=== PATIENT | male | born 1995 | race Hispanic/Latino ===

== ENCOUNTER 2016-06-08 12:40 | Inpatient (IN) | payer OTHER ==
[2016-06-08] VITALS (8 sets, daily range): BP systolic 91–116; BP diastolic 44–80; PULSE 83–97; RESP 16–32; O2SAT 98–100
[~2016-06-08] VITALS: Ht 157.5 cm; Wt 63.3 kg
[~2016-06-08 12:40] MED LIST: CEPH500C PO; DIGO250T72 PO; FUR20 PO; HYDR-4003 PO; LISI10TA PO; METO25TA99 PO; SPIR25TA3 PO; WARF5TAB7 PO
--- NOTE | 2016-06-08 13:36 | DRSVH ---
PROCEDURE: X-RAY CHEST ONE VIEW, PORTABLE ([id number]) INDICATIONS: shortness of breath TECHNIQUE: One view of the chest was acquired. COMPARISON: [facility], CR, XR CHEST 2VW, 12/31/2015, 6:54. [facility], CR, XR CHEST 1VW (PORTABLE), 12/30/2015, 10:54. FINDINGS: Surgical changes and devices: Stable position left chest AICD. Lungs and pleura: No pleural effusions or pneumothorax. Lungs are clear. Mediastinum: Mediastinal contours appear normal. Heart size is enlarged. Bones and chest wall: No suspicious bony lesions. Overlying soft tissues appear unremarkable. IMPRESSION: Cardiomegaly redemonstrated otherwise no definite acute cardiopulmonary process. Dictated by: Rigoberto Majano [facility] Interpreted: Suzette Prado MD on 06/08/2016 at 13:34 Transcribed by: HERACLIO on 06/08/2016 at 13:35 Approved by: Suzette Prado MD, PhD on 06/08/2016 at 16:14
[2016-06-08 14:08] LABS: BASOPHILS % (AUTO) 0.4 % (0-3); MONOCYTES % (AUTO) 8.8 % (4-12); Mean Corpuscular Volume 71.4 fL (81-100)
--- NOTE | 2016-06-08 14:09 | ED.REPORT ---
HPI-General Illness Date of Service Jun 08, 2016 ED Provider: Minerva Martini MD Pt is a 20 y/o male anticoagulated on Warfarin and medicated on Digoxin w/ a hx of crystal meth-induced dilated cardiomyopathy, CHF (EF of 10-15% 11/12/15), s/p AICD placement, presenting to the ED c/o worsening dyspnea on mild exertion onset 05/20/16. He c/o associated increased pedal edema, lightheadedness, dizziness, red productive cough, nausea. Pt denies CP, fever, chills, abdominal pain, vomiting, diarrhea. He states most of his health problems are the cause of smoking crystal meth in the past. He denies any missed medications. Pt denies any recent drug or alcohol use. Cardiology: Dr. Leon Nursing Notes Stated Complaint: WEAK Chief Complaint: General Complaint Nursing Notes Reviewed: Yes Allergies: Coded Allergies: No Known Allergies (Verified Allergy, Unknown, 10/10/15) Scheduled Digoxin (Digoxin) 250 Mcg Tablet 250 MCG PO DAILY Furosemide (Furosemide) 20 Mg Tab 20 MG PO DAILY Lisinopril (Lisinopril) 10 Mg Tablet 10 MG PO BID Metoprolol Succinate ER (Metoprolol Succinate ER) 25 Mg Tab.er.24h 12.5 MG PO DAILY Spironolactone (Spironolactone) 25 Mg Tablet 25 MG PO DAILY Warfarin Sodium (Warfarin Sodium) 5 Mg Tablet 7.5 MG PO WEEKLY monday Warfarin Sodium (Warfarin Sodium) 5 Mg Tablet 5 MG PO 6X weekly every day but monday General Time Seen by MD: 13:46 Chief Complaint Other (SOB) Hx Obtained From: Patient Arrived By: Walk-in Sudden in Onset?: No Onset Occurred: More than a week ago... (1 month) Symptom Duration: Since onset Severity: Current: No pain currently Severity: Maximum: No pain Recent Healthcare: Recent testing, Previous diagnosis, Prior workup Similar Sx Previous: Yes Past Medical History Past Medical History Notes: Cardiology: Dr. 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 Physical Exam Vital Signs Vital Signs Date Time Temp Pulse Resp B/P Pulse Ox O2 Delivery O2 Flow Rate FiO2 06/08/16 13:03 36.0 88 20 101/70 99 Room Air Initial VS: Reviewed, Vital signs normal Head / Eyes: Atraumatic, Normocephalic, PERRL ENT: Mucous membranes moist, Conjunctiva normal, No scleral icterus Neck: Supple, Full range of motion Abdomen / GI: Soft, Non-tender Extremities: Vascular intact, Neuro intact, No swelling, No tenderness Skin: Warm, Dry, No cyanosis Neurologic: Alert, Oriented, Nonfocal Psychiatric: Mood/affect normal, Behavior normal, Normal thought content General/Constitutional: Awake, Alert, No acute distress, Cooperative, Not toxic appearing Respiratory / Chest: Atraumatic, No respiratory distress, No retractions, No stridor, No chest tenderness, No chest wall deformity, No crepitus Minor rhonchi on right side that clears with deep breathing. Cardiovascular: Heart rate NL, Regular rhythm, Cap refill not delayed, Peripheral circulation NL Heart Sounds / Murmur: Positive: Diastolic murmur present. (II/, heard best at apex) Interpretation & Diagnostics Lab Results Interpretation Result Diagram: 06/08/16 1250 06/08/16 1250 Test 06/08/16 12:50 White Blood Count 7.0th/mm3 (3.8-10.1) Red Blood Count 5.74mil/mm3 (4.40-5.80) Hemoglobin 12.5g/dL (13.8-17.2) Hematocrit 41.0% (41.0-50.0) Mean Corpuscular Volume 71.4fL (81-100) Mean Corpuscular Hemoglobin 21.8pg (27.0-35.0) Mean Corpuscular Hemoglobin Concent 30.5% (32.0-37.0) Red Cell Distribution Width 19.0% (12.3-15.4) Platelet Count 225bil/L (150-400) Neutrophils (%) (Auto) 55.5% (40-74) Lymphocytes (%) (Auto) 33.8% (14-46) Monocytes (%) (Auto) 8.8% (4-12) Eosinophils (%) (Auto) 0.9% (0-5) Basophils (%) (Auto) 0.4% (0-3) Prothrombin Time 87.2sec (8.1-12.5) Prothromb Time International Ratio 7.81ratio Sodium Level 128mEq/L (134-144) Potassium Level 5.1mEq/L (3.5-5.2) Chloride Level 93mEq/L (97-108) Carbon Dioxide Level 17mmol/L (18-29) Blood Urea Nitrogen 18mg/dL (6-20) Creatinine 0.69mg/dL (0.76-1.27) Estimat Glomerular Filtration Rate 157mL/min (>59) Glucose Level 85mg/dL (60-99) Calcium Level 8.5mg/dL (8.5-10.1) Total Bilirubin 2.8mg/dL (0.0-1.2) Aspartate Amino Transf (AST/SGOT) 57U/L (0-50) Alanine Aminotransferase (ALT/SGPT) 63U/L (0-44) Alkaline Phosphatase 121U/L (25-150) Troponin T 0.129ug/L (0.0-0.011) Pro-B-Type Natriuretic Peptide 8125pg/mL (0-86) Total Protein 7.2g/dL (6.4-8.4) Albumin 3.7g/dL (3.4-5.0) Digoxin Level 1.2nG/mL (0.9-2.0) ECG Interpretation ECG Interpretation: Sinus rhythm rate 85 LAE LVH Time: 14:30 Interpreted by: ED physician Normal ECG Interpretation: No acute ischemic changes, No change from prior ECGs X-Ray Chest Interpretation Chest Xray Interpretation: IMPRESSION: Cardiomegaly redemonstrated otherwise no definite acute cardiopulmonary process. Dictated by: Rigoberto Majano RRA Interpreted: Suzette Prado MD on 06/08/2016 at 13:34 Transcribed by: HERACLIO on 06/08/2016 at 13:35 View: Portable, 1 view Interpretation / Wet Read by: Interpret - Radiologist Chest Xray Interpretation: IMPRESSION: 1. Cardiomegaly. 2. No acute process. Dictated by: Morgan Monte M.D. on 06/08/2016 at 14:16 Approved by: Morgan Monte M.D. on 06/08/2016 at 14:16 View: Portable, 1 view Interpretation / Wet Read by: Interpret - Radiologist Re-Eval/Medical Decision Time of Eval: 15:06 Re-Evaluation/Progress Note: Pt rechecked. BP from mid 80s-90s. He remains short of breath without chest pain. After positive troponin he was moved to a major medical room. Remains mildly dyspneic with oxygen sats of 100%. Cardiology will be consulted. Informed pt of need for admission. Pt understands and agrees with plan for admission. All questions addressed. Consultation #1: Referral / Consult Name: Patria Conte MD Consulted With: Cardiology Call Returned at: 15:10 Electronics Tester: Will see patient, Agrees with eval, Agrees with plan Note: Recommends admission. Will consult. Believes he is experiencing acute decompensated heart failure. Consultation #2: Referral / Consult Name: Jefferson Blackburn MD Consulted With: Hospitalist Call Returned at: 15:45 Electronics Tester: Will see patient, Agrees with eval, Agrees with plan, Accepts admit Counseled Regarding: Diagnosis, Lab results, Need for admission Discharge & Departure Primary Impression: Acute decompensated heart failure Disposition: ADMITTED TO HOSPITAL Discharge Condition All VS Reviewed: Yes Condition: Stable Referrals: Misty Herr MD (PCP) Suzy Leon MD Crit Care Except Billable Proc Time Spent: 30-74 minutes Services Performed: Patient management by me, Time spent at bedside, Reviewing test results, Reviewing imaging, Discussing patient care, Documentation in record, Time with fam/surrogate Scribe Attestation Portions of this note were transcribed by Dontae Bartlett. I, Dr. Martini personally performed the history, physical exam and medical decision-making; I reviewed and confirmed the accuracy of the information in the transcribed note. Signed by Mónica Cantu, 06/08/16 - 1500 copies to: Misty Herr MD; Suzy Leon MD, Shawna L MD Jun 08, 2016 14:09 DONTAE BARTLETT Jun 08, 2016 14:27
[2016-06-08 14:11] LABS: EOSINOPHILS % (AUTO) 0.9 % (0-5); Mean Corpuscular Hemoglobin 21.8 pg (27.0-35.0); NEUTROPHILS % (AUTO) 55.5 % (40-74); Platelet Count 225 bil/L (150-400)
--- NOTE | 2016-06-08 14:17 | DRSVH ---
PROCEDURE: X-RAY CHEST, TWO VIEWS ([id number]) INDICATIONS: chest pain, abnormal EKG TECHNIQUE: 2 views of the chest were acquired. COMPARISON: [facility], CR, XR CHEST 1VW (PORTABLE), 06/08/2016, 13:14. [facility], CR, XR CHEST 2VW, 12/31/2015, 6:54. [facility], CR, XR CHEST 2VW, 10/01/2015, 11 :05. [facility], CR, XR CHEST 2VW, 09/24/2015, 23:41. FINDINGS: Surgical changes and devices: Left-sided pacer. Lungs and pleura: No pleural effusions or pneumothorax. Lungs are clear. Mediastinum: Mediastinal contours are normal. Heart size is enlarged. Bones and chest wall: No suspicious bony abnormalities. Soft tissues appear unremarkable. IMPRESSION: 1. Cardiomegaly. 2. No acute process. Dictated by: Morgan Monte M.D. on 06/08/2016 at 14:16 Approved by: Morgan Monte M.D. on 06/08/2016 at 14:16
[2016-06-08 14:40] LABS: INR 7.81 ratio
[2016-06-08 14:49] LABS: TROPONIN T 0.129 ug/L (0.0-0.011)
[2016-06-08] MEDS ORDERED: Furosemide 10 mg/mL 2 mL Inj IVPUSH ONE (15:15)
[2016-06-08] MEDS ORDERED: Phytonadione (Adult) 10 mg/1 mL Inj PO ONE (15:40)
[2016-06-08] MEDS ORDERED: Alum-Mag Hydrox-Simeth 30 mL Suspension PO PRN (15:50)
[2016-06-08] MEDS ORDERED: Polyethylene Glycol (PEG) 17 Gm Powder PO PRN (15:50)
[2016-06-08] MEDS ORDERED: Ondansetron 2 mg/mL 2 mL Inj IVPUSH PRN (15:50)
[2016-06-08] MEDS ORDERED: Furosemide 10 mg/mL 4 mL Inj IVPUSH SCH (15:50)
[2016-06-08] MEDS ORDERED: Senna-Docusate 8.6-50 mg Tablet PO PRN (15:50)
[2016-06-08] MEDS ORDERED: Furosemide 10 mg/mL 4 mL Inj IVPUSH ONE (16:00)
--- NOTE | 2016-06-08 16:07 | PCM.HPMED ---
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 Patient presented to the hospital c/o worsening dyspnea on mild exertion for a week or so. He c/o associated increased pedal edema, lightheadedness, dizziness , generalized weakness and cough. He stated he has been taking his medication and is compliant with his diet Pt denies CP, fever, chills, abdominal pain, vomiting, diarrhea. He denied any recent drug use. He stated the last time he used drug was back in 2014. Review of Systems: Review of systems is pertinent for shortness of breath at described above in history of present illness otherwise a comprehensive review x 12 points is negative Allergies Coded Allergies: No Known Allergies (Verified Allergy, Unknown, 10/10/15) Home Medications Scheduled Digoxin (Digoxin) 250 Mcg Tablet 250 MCG PO DAILY Furosemide (Furosemide) 20 Mg Tab 20 MG PO DAILY Lisinopril (Lisinopril) 10 Mg Tablet 10 MG PO BID Metoprolol Succinate ER (Metoprolol Succinate ER) 25 Mg Tab.er.24h 12.5 MG PO DAILY Spironolactone (Spironolactone) 25 Mg Tablet 25 MG PO DAILY Warfarin Sodium (Warfarin Sodium) 5 Mg Tablet 7.5 MG PO WEEKLY monday Warfarin Sodium (Warfarin Sodium) 5 Mg Tablet 5 MG PO 6X weekly every day but monday PMH Methamphetamine induced Cardiomyopathy CHF with EF of 10-15% 11/12/15 AICD placement Surgical History Cardiac cath AICD Family History Family history reviewed and is noncontributory to the present illness Social History Hx Alcohol Use: No Hx Substance Use: Yes (crystal methamphetamine 1 1/2 yrs ago) Hx Tobacco Use: No Smoking Status: Never Smoker Living Arrangement: with Family Exam Vital Signs Vital Sign - Last Date Time Temp Pulse Resp B/P Pulse Ox O2 Delivery O2 Flow Rate FiO2 06/08/16 13:03 36.0 88 20 101/70 99 Room Air Exam General/Constitutional: Well-nourished male, in stretcher comfortably. No acute distress HEENT: Atraumatic, Normocephalic, PERRL, sclerae is anicteric Mouth: Moist oropharyngeal mucosa Neck: Supple, Full range of motion, trachea is midline. No JVD Chest: Atraumatic, No respiratory distress, No retractions, No chest tenderness all deformity Lungs : Clear to auscultation bilaterally . No wheezing Cardiovascular: S1, S2, irregular attenuating, no gallop, no murmur Abdomen: Soft non-tender, non-distended, no mass Extremities: 1+ edema bilaterally, no cyanosis, no tenderness Skin: Warm, Dry, No cyanosis, no rash, no ulcers Neurologic: Alert, Oriented, grossly intact Psychiatric: Mood/affect normal, Behavior normal, Normal thought content Lab and Diagnostics Result Diagram: 06/08/16 1250 06/08/16 1250 X-Rays, CTs and MRIs Chest x-ray reviewed personally : No acute finding EKG : ST changes. Assessment & Plan 1. Decompensated acute on chronic systolic heart failure. 2. Non-ST elevation NH 3. Coumadin toxicity 4. Hypervolemic Hyponatremia Chronic medical problems Systolic failure with ejection fraction of 10-15% (secondary to methamphetamine abuse) Status post AICD Plan of care Admit to PCU. Telemetry monitoring. Start Lasix 40 mg IV twice a day. Continue aspirin electively 5 mg daily Supplemental oxygen 2 L nasal cannula. Strict I & O, fluid restriction, daily weight . Patient has a chronic elevation of troponin what his numbers slightly above his baseline. No EKG changes but the patient presented with angina. Unlikely to have CAD at 20 years old. Obtain urine drug screen His is on anticoagulation Coumadin, INR 7.8 on presentation . Coumadin. Patient has no clinical sign or evidence of bleeding. We give small dose of vitamin K (2.5 milligrams PO) Obtain lipid profile, TSH, repeat troponin in a.m.. Monitor renal function . Na 123 , Cardiology consulted VTE Prophylaxis: Other (on Coumadin at home. INR 7 on admission ) Resuscitation Status: CPR: Attempt Resuscitation Time spent 75 minutes Jefferson Blackburn MD Jun 08, 2016 16:07
[2016-06-08] MEDS: Sodium Chloride LOK Flush 10 mL Syringe IVFLUSH SCH (16:55)
[2016-06-08 17:33] LABS: APPEARANCE,URINE HAZY (CLEAR,HAZY); COLOR,URINE YELLOW (YELLOW); OCCULT BLOOD,URINE NEGATIVE (NEGATIVE); PH,URINE 5.5 (5.0-8.0); UROBILINOGEN,URINE NORMAL (NORMAL)
[2016-06-08] MEDS: Furosemide 10 mg/mL 4 mL Inj IVPUSH SCH (18:27)
[2016-06-09] VITALS (11 sets, daily range): BP systolic 97–123; BP diastolic 53–79; PULSE 87–112; RESP 16–20; O2SAT 98–100
[2016-06-09] MEDS: Sodium Chloride LOK Flush 10 mL Syringe IVFLUSH SCH ×3 (00:39→18:34)
[2016-06-09 05:50] LABS: BASOPHILS % (AUTO) 0.5 % (0-3); EOSINOPHILS % (AUTO) 1.1 % (0-5); MONOCYTES % (AUTO) 7.3 % (4-12); Mean Corpuscular Hemoglobin 21.7 pg (27.0-35.0); Mean Corpuscular Volume 71.6 fL (81-100); NEUTROPHILS % (AUTO) 64.2 % (40-74); Platelet Count 230 bil/L (150-400)
[2016-06-09 06:08] LABS: INR 2.46 ratio
[2016-06-09] MEDS: Furosemide 10 mg/mL 4 mL Inj IVPUSH SCH ×2 (06:23→18:33)
[2016-06-09 06:26] LABS: TROPONIN T 0.14 ug/L (0.0-0.011)
[2016-06-09] MEDS ORDERED: Insulin Human REGular-Omnicell 100 Unit/mL IV ONE (10:55)
[2016-06-09] MEDS: MeTOProlol XL 25 mg ER24 Tablet PO SCH (11:36)
--- NOTE | 2016-06-09 14:09 | PCM.PNMED ---
Subjective Date of Service Jun 09, 2016 Subjective Ky Fragoso is a 20 year old man with past medical history significant for severe dilated cardiomyopathy secondary to amphetamine use who presented with worsening shortness of breath. He is currently under treatment for a CHF exacerbation. Hospital day #2 Overnight: No acute events. Today: The patient states his shortness of breath is better and is able to lay flat. He states his edema has improved as well. He denies any chest pain, fevers , chills. He has not felt his AICD go off, but he has never felt it before. He does note a dry cough. The remainder of the review of systems is negative except as noted above. Exam Vital Signs Vital Sign - Last Date Time Temp Pulse Resp B/P Pulse Ox O2 Delivery O2 Flow Rate FiO2 06/09/16 11:36 111 06/09/16 10:38 36.6 18 111/74 100 Room Air Intake and Output 06/08/16 06/08/16 06/09/16 Cumulative From/Thru 15:00 23:00 07:00 06/08/16 13:03 - 06/09/16 06:33 Intake Total 538 ml 538 ml Balance 538 ml 538 ml Intake Oral 538 ml 538 ml Exam General/Constitutional: Well-nourished male, in stretcher comfortably. No acute distress HEENT: Atraumatic, Normocephalic, PERRL, sclerae is anicteric Mouth: Moist oropharyngeal mucosa Neck: Supple, Full range of motion, trachea is midline. No JVD Chest: Atraumatic, No respiratory distress, No retractions, No chest tenderness all deformity Lungs : Clear to auscultation bilaterally. No wheezing Cardiovascular: S1, S2, irregular attenuating, no gallop, no murmur Abdomen: Soft non-tender, non-distended, no mass Extremities: no edema bilaterally, no cyanosis, no tenderness Skin: Warm, Dry, No cyanosis, no rash, no ulcers Neurologic: Alert, Oriented, grossly intact Psychiatric: Mood/affect normal, Behavior normal, Normal thought content IVs and Medications Medications Reviewed: Medications were reviewed in detail Lab and Diagnostics Result Diagram: 06/09/1651106/09/16 0512 X-Rays, CTs and MRIs X-RAY CHEST, TWO VIEWS IMPRESSION: 1. Cardiomegaly. 2. No acute process. Dictated by: Morgan Monte M.D. 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 He is currently under treatment for a CHF exacerbation. Hospital day #2 1. Decompensated acute on chronic systolic heart failure, present on admission , ongoing -Etiology of exacerbation uncertain at this time as patient is compliant with his medications and denies any excessive salt intake -Continue supplemental O2 while titrating down -Strict I & O, fluid restriction, daily weights. -ECHO read pending -Continue Lasix 40 mg IV twice a day -Telemetry monitoring. -Dr. Conte consulted. Discussed the case with her, she agrees to see the patient. 2. Elevated troponin of uncertain significance, present on admission, ongoing -It is highly unlikely that the patient has CAD given his age and cardiac cath that was negative for CAD -Will continue to trend but like this is simply due to CHF exacerbation 3. Coumadin toxicity, present on admission, resolved -Patient on chronic anticoagulation due to cardiac thrombus -He was given 2.5 mg of Vitamin K PO -Coumadin to be managed by pharmacy 4. Hypervolemic Hyponatremia -Secondary to CHF -Will continue to monitor but it appears improvement of his CHF has resulted in already improved sodium 5. Systolic failure with ejection fraction of 10-15% (secondary to methamphetamine abuse) 6. Status post AICD -Cardiology plans to interrogate the device Dispo: Anticipate patient will remain the hospital for another 1-2 days while his CHF exacerbation is treated. VTE Prophylaxis: Other (on Coumadin at home. INR 7 on admission ) VTE Mechanical Devices: Intermittant Pneumatic CD Resuscitation Status: CPR: Attempt Resuscitation Attending Statement The patient was seen and examined together with Dr. Dang on 06/09/2016 and I agree with the history, exam and plan as outlined in the note above. Navya Calderon DO Jun 09, 2016 13:09 Franky Ramachandran MD Jun 10, 2016 11:21
--- NOTE | 2016-06-09 14:59 | DRSVH ---
[facility] [address] [place] [address] Echocardiogram Report Name: SAIRA PISANO Study Date: 06/09/2016 Height: 62 in Hospital Exam Location: [facility] Weight: 144 lb Gender: Male BSA: 1.7 m2 : 1995 Age: 20 yrs BP: 107/68 mmHg Reason For Study: Congestive Heart Failure Ordering Physician: Performed By: Evangelist Modi Interpretation Summary The left ventricle is severely dilated. Left ventricular systolic function is severely reduced. The ejection fraction is estimated to be 15-20%. There is severe global hypokinesis of the left ventricle. Assessment of diastolic parameters indicates a restrictive filling pattern of the left ventricle consistent with significantly elevated filling pressures. The right ventricle is mild to moderately dilated. There is a pacemaker lead in the right ventricle. Right ventricular systolic function is moderately reduced. The right ventricular systolic pressure is estimated at 70 mmHg assuming a right atrial pressure of 15 mm Hg. The left atrium is severely dilated. The right atrium is mildly dilated. There is mild to moderate mitral regurgitation. There is no other significant valvular heart disease. The aortic root is normal size. Only real significant change is significant increase of pulmonary hypertension. Procedure: A two-dimensional transthoracic echocardiogram with color flow and Doppler was performed. The study quality was technically good. Comparison is made with the echocardiogram of 11/12/15. The patient was in normal sinus rhythm during the exam. The patient had occasional PVCs during the exam. Left Ventricle: The left ventricle is severely dilated. There is normal left ventricular wall thickness. Left ventricular systolic function is severely reduced. The ejection fraction is estimated to be 15-20%. There is severe global hypokinesis of the left ventricle. Assessment of diastolic parameters indicates a restrictive filling pattern of the left ventricle consistent with significantly elevated filling pressures. Right Ventricle: The right ventricle is mild to moderately dilated. There is a pacemaker lead in the right ventricle. Right ventricular systolic function is moderately reduced. Atria: The left atrium is severely dilated. The right atrium is mildly dilated. There is a catheter/pacemaker lead seen in the right atrium. There is no Doppler evidence for an interatrial shunt. Mitral Valve: The mitral valve leaflets appear borderline thickened, but open well. There is mild to moderate mitral regurgitation. Aortic Valve: The aortic valve is trileaflet. The aortic valve opens well. No aortic regurgitation is present. Tricuspid Valve: The tricuspid valve is normal in structure and function. There is mild tricuspid regurgitation. The right ventricular systolic pressure is estimated at 70 mmHg assuming a right atrial pressure of 15 mm Hg. Pulmonic Valve: The pulmonic valve leaflets are thin and pliable; valve motion is normal. There is mild pulmonic regurgitation. There is no other significant valvular heart disease. Great Vessels: The aortic root is normal size. The ascending aorta is normal in size. The aortic arch is normal in size. The pulmonary artery is normal size. The IVC is dilated (diameter is greater than 2.1 cm) and it collapses less than 50% with a sniff. This suggests a high right atrial pressure of 15 mm Hg. Pericardium/ Pleura There is no pericardial effusion. There is no pleural effusion. MMode/2D Measurements & Calculations LVIDd: 6.9 cm LA dimension: 4.6 cm RA long axis LVOT diam: 1.9 cm LVIDs: 4.5 cm AoV Opening FS: 34.6 % LA A2 area: 25.2 cm RA area EPSS: 2.7 cm LA A4 area: 29.6 cm Ao root diam IVSd: 0.71 cm LA length (vol) : 18.7 cm LVPWd: 0.78 cm RA vol asc Aorta Diam LA vol: 88.3 ml : 53.4 ml LA vol index RA Ao Arch Diam (Prox : 32.1 mm/ Trans): 1.9 cm RVDd major IVC diam: 2.2 cm : 7.8 cm LV camilo. diameter/BSA LV sys. diameter/BSA RVD1 (basal) RVD2 (mid): 4.4 cm (cm/m^2): 4.1 (cm/m^2): 2.7 TAPSE: 1.4 cm Doppler Measurements & Calculations Ao V2 max MV E max barron MV E/A: 2.1 TR max barron : 80.2 cm/sec : 73.8 cm/sec Med Peak E' Barron : 369.6 cm/sec Ao max P.6 mmHgMV A max barron TR max PG Ao mean PG : 34.8 cm/sec E/E' med: 18.5 : 54.6 mmHg MV P1/2t: 32.7 msec Lat Peak E' Barron PA V2 max LVOT Max Barron MR ERO: 0.16 cm2 : 68.9 cm/sec : 44.8 cm/sec E/E' lat: 7.7 PA mean PG GHULAM(I,D): 1.6 cm E/e' average : 0.75 mmHg sev ratio: 0.54 PA Accel Time : 0.08 sec MV P1/2t max barron Ao V2 mean LV V1 max PG MR flow rate : 58.0 cm/sec : 58.1 cm3/sec MVA(P1/2t): 6.7 cm2Ao V2 VTI: 13.0 cm LV V1 VTI: 7.0 cm MR PISA radius GHULAM(V,D): 1.7 cm2 PA V2 mean GHULAM indexed to BSA : 39.6 cm/sec (cm^2/m^2): 0.96 Reading Physician:EMMA
[2016-06-09 16:08] LABS: TROPONIN T 0.123 ug/L (0.0-0.011)
--- NOTE | 2016-06-09 22:52 | CONS ---
[address] [address] CONSULTATION REPORT PATIENT: SAIRA PISANO : 1995 MR#: [id number] ADMIT: 06/08/2016 JOB ID: [id number] DATE OF SERVICE: 06/09/2016 CHIEF COMPLAINT: I was asked by the hospitalist team to consult on this patient here with admission for heart failure. HISTORY OF PRESENT ILLNESS: The patient is a 89-year-old man with a history of severe cardiomyopathy. He is followed by Dr. Suzy Leon. He has been taking his medications as scheduled but started feeling worse since about the first week of May. He said he has been having increased shortness of breath as well as episodic dizziness. He denies any chest pain, chest pressure, chest tightness. He denies increased edema, increased abdominal swelling, but says that he has been waking up at night short of breath. As part of his workup, he had interrogation of his pacemaker; but this does not show any events in the current time that are of concern. He has been diuresed here. He is feeling much better. He is lying flat in bed. PAST MEDICAL HISTORY/PROBLEM LIST: 1. History of cardiomyopathy. 2. History of AICD placement. 3. History of methamphetamines use in the past. HOME MEDICATIONS INCLUDE: 1. Digoxin 250 mcg daily. 2. Furosemide 20 mg daily. 3. Lisinopril 10 mg b.i.d. 4. Metoprolol succinate 25 daily. 5. Spironolactone 25 daily. 6. Warfarin. ALLERGIES: No known drug allergies. SOCIAL HISTORY: No tobacco, former substance use. Never smoker. FAMILY HISTORY: No early coronary disease. REVIEW OF SYSTEMS: Overall health: No fevers, chills, night sweats, or weight loss. GI: Denies ulcers or blood in his stool. : No dysuria, no hematuria. Pulmonary: Increased shortness of breath, but no known lung disease. Cardiac: As per HPI. Musculoskeletal: No joint swelling or pain. Derm: No rashes or skin breakdown. Heme: No easy bruising or bleeding. Neuro: No chronic headaches. Endocrine: No he heat or cold intolerance. Psych: No acute issues: Ophtho: No acute issues. All other review of systems of a 12-point review of systems are negative. PHYSICAL EXAMINATION: Blood pressure is 111/74, heart rate 100, afebrile, sats 100% on room air. General: In no acute distress. Speaking in full sentences without apparent shortness of breath. Head and neck exam: Normocephalic, atraumatic. Neck: I can still appreciate some JV pulsations when he is lying flat in bed. Heart exam: Tachycardic without obvious murmurs, gallops, or rubs appreciated. Lungs: Question of slight crackles at the bases. No wheezes appreciated. Abdomen: Soft, nontender. Back: No CVA tenderness to palpation. Extremities: Warm. Trace edema. Good distal pulses. Skin: Without breakdown appreciated. Neuro: Alert and oriented, conversant. Gait not tested. Psych: Appropriate mood and affect. ENT: mucous membranes moist. Optho: grossly normal vision DATA: EKG shows sinus rhythm with possible right ventricular hypertrophy, nonspecific ST changes. Imaging shows cardiomegaly but no acute process. Lab show a white count 8.4, H and H 12.3 and 40.6, platelets of 230,000. Chemistry shows sodium 132 increased from 128, potassium 5.3, chloride and bicarb 94 and 23 respectively, BUN and creatinine 18 and 0.74. Troponin is in the range of 0.12. A dig level was 1.2. Echocardiogram shows severely dilated LV with EF of 15-20% with global hypokinesis. Right ventricle mild to moderately dilated with a pacemaker lead. Right ventricular systolic pressure estimated at 70 mm. The echocardiogram is unchanged except for the pulmonary pressures are quite a bit elevated at this juncture. Other labs show coagulation with an INR which is 7.81, now 2.46. CURRENT MEDICATIONS INCLUDE: 1. Lisinopril 5 b.i.d. 2. Metoprolol 12.5 daily. 3. Digoxin 0.25 daily. 4. Spironolactone 25 daily. 5. Lasix 40 mg IV push q.6. IMPRESSION: The patient comes in with increased shortness of breath despite taking his medications regularly. I think his digoxin level is too high. Digoxin, in my opinion, should be at a lower dose. He has been taking all of his medications regularly. His PA pressures are now more elevated, which is concerning. This could be due to progressive problems with the LV or other causes. PLAN: 1. He has done much better with diuresis. 2. We have looked at the interrogation of his defibrillator, and there are no acute issues on him. 3. The troponin is elevated but stable. He had a history of cardiac cath in 2016 that showed no coronary disease. 4. He has an increase in his pulmonary pressures. This is more likely related to worsening heart function but will discuss with the hospital team regarding concern for other etiologies. 45 minutes was spent reviewing the patient's chart, speaking with the patient and his family, and coordinating care with the hospital team TIFFANY
[2016-06-10] VITALS (9 sets, daily range): BP systolic 99–138; BP diastolic 58–70; PULSE 81–100; RESP 20; O2SAT 100
[2016-06-10] MEDS: Sodium Chloride LOK Flush 10 mL Syringe IVFLUSH SCH ×4 (00:49→20:44)
[2016-06-10 05:39] LABS: BASOPHILS % (AUTO) 0.2 % (0-3); EOSINOPHILS % (AUTO) 1.6 % (0-5); MONOCYTES % (AUTO) 7.4 % (4-12); Mean Corpuscular Hemoglobin 22.2 pg (27.0-35.0); Mean Corpuscular Volume 71.1 fL (81-100); NEUTROPHILS % (AUTO) 64.4 % (40-74); Platelet Count 225 bil/L (150-400)
[2016-06-10] MEDS: Furosemide 10 mg/mL 4 mL Inj IVPUSH SCH (06:36)
[2016-06-10] MEDS: MeTOProlol XL 25 mg ER24 Tablet PO SCH (08:20)
[2016-06-10 08:26] LABS: INR 1.31 ratio
--- NOTE | 2016-06-10 11:21 | PCM.PNMED ---
Subjective Date of Service Jun 10, 2016 Subjective Uneventful night. Reports he feels much better this morning. Has no complaints and would like to go home when possible. Reports his breathing is back to baseline and denies any pains or discomfort. Exam Vital Signs Vital Sign - Last Date Time Temp Pulse Resp B/P Pulse Ox O2 Delivery O2 Flow Rate FiO2 06/10/16 06:35 94 99/68 06/10/16 06:29 36.9 20 100 Room Air Intake and Output 06/09/16 06/09/16 06/10/16 Cumulative From/Thru 15:00 23:00 07:00 06/08/16 13:03 - 06/10/16 06:35 Intake Total 600 ml 1600 ml 2738 ml Output Total 2200 ml 1425 ml 3625 ml Balance -1600 ml 175 ml -887 ml Intake Oral 600 ml 1600 ml 2738 ml Output Urine Total 2200 ml 1425 ml 3625 ml # Bowel Movements 0 0 Exam General/Constitutional: Well-nourished male who appears in NAD. Cooperative HEENT: Atraumatic, Normocephalic, PERRL, sclerae is anicteric Mouth: Moist oropharyngeal mucosa Neck: Supple, Full range of motion, trachea is midline. No JVD Chest: Atraumatic, No respiratory distress, No retractions, No chest tenderness all deformity Lungs : Clear to auscultation bilaterally. No wheezing Cardiovascular: RRR with soft sytolic murmur Abdomen: Soft non-tender, non-distended, no mass Extremities: no edema bilaterally, no cyanosis, no tenderness Skin: Warm, Dry, No cyanosis, no rash, no ulcers Neurologic: Alert, Oriented, grossly intact Psychiatric: Mood/affect normal, Behavior normal, Normal thought content IVs and Medications Medications Reviewed: Medications were reviewed in detail Lab and Diagnostics Result Diagram: 06/10/16 0530 06/10/16 0530 X-Rays, CTs and MRIs X-RAY CHEST, TWO VIEWS IMPRESSION: 1. Cardiomegaly. 2. No acute process. Dictated by: Morgan Monte M.D. on 06/08/2016 at 14:16 Cardiac Echo Impressions Interpretation Summary The left ventricle is severely dilated. Left ventricular systolic function is severely reduced. The ejection fraction is estimated to be 15-20%. There is severe global hypokinesis of the left ventricle. Assessment of diastolic parameters indicates a restrictive filling pattern of the left ventricle consistent with significantly elevated filling pressures. The right ventricle is mild to moderately dilated. There is a pacemaker lead in the right ventricle. Right ventricular systolic function is moderately reduced. The right ventricular systolic pressure is estimated at 70 mmHg assuming a right atrial pressure of 15 mm Hg. The left atrium is severely dilated. The right atrium is mildly dilated. There is mild to moderate mitral regurgitation. There is no other significant valvular heart disease. The aortic root is normal size. Only real significant change is significant increase of pulmonary hypertension. 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 He is currently under treatment for a CHF exacerbation. Hospital day #3 1. Decompensated acute on chronic systolic heart failure, present on admission , ongoing -Etiology of exacerbation uncertain at this time as patient is compliant with his medications and denies any excessive salt intake. 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 -Continue supplemental O2 while titrating down -Strict I & O, fluid restriction, daily weights. -ECHO results as above - concerning for increased PA pressures -Will transition to PO lasix 40mg BID today, with plan to discharge on regular home dose -Telemetry monitoring has been unremarkable. -Dr. Conte, cardiology, consulted on patient. Appreciate her time and expertise. 2. Elevated troponin of uncertain significance, present on admission, ongoing -It is highly unlikely that the patient has CAD given his age and cardiac cath that was negative for CAD -Likely due to demand ischemia from CHF exacerbation 3. Coumadin toxicity, present on admission, resolved -Patient on chronic anticoagulation due to cardiac thrombus -He was given 2.5 mg of Vitamin K PO -Coumadin to be managed by pharmacy -Subtherapeutic today 4. Hypervolemic Hyponatremia -Likely Secondary to CHF -Was improving, but now worsen with Na level of 127. Will continue to evaluate and monitor. 5. Systolic failure with ejection fraction of 10-15% (secondary to methamphetamine abuse) 6. Status post AICD -AICD interrogated and no acute issues identified Dispo: Likely discharge tomorrow if stable. Pain Evaluation: Adequate Pain Control VTE Prophylaxis: Other (on Coumadin at home. INR 7 on admission ) VTE Mechanical Devices: Intermittant Pneumatic CD Resuscitation Status: CPR: Attempt Resuscitation Attending Statement The patient was seen and examined together with Dr. Singletary on 06/10/2016 and I agree with the history, exam and plan as outlined in the note above. Damon Singletary DO Jun 10, 2016 07:31 Franky Ramachandran MD Jun 11, 2016 11:18
--- NOTE | 2016-06-10 13:33 | PROG NOTE ---
[address] [address] PROGRESS NOTE PATIENT: SAIRA PISANO : 1995 MR#: [id number] ADMIT: 06/08/2016 JOB ID: [id number] DATE: 06/10/2016 CHIEF COMPLAINT: Shortness of breath. HISTORY OF PRESENT ILLNESS: The patient is a 20-year-old man with nonischemic cardiomyopathy closely monitored by myself in Cardiology Clinic as well as Dr. Deya Howell of [facility] at the [facility]. He is hospitalized with acute decompensated heart failure. No obvious trigger. He says he has been compliant with medical therapy. He says he has been having worsening shortness of breath for the past two weeks. He denies any chest pain, chest pressure, edema or abdominal distention. Since hospitalization, he is feeling better. He diuresed 2.3 kg and he is out more than in by 1.5 L based on the urinalysis recordings. OBJECTIVE: Vital signs: Temperature 36.4, blood pressure 99/68 up to 106/69, pulse on telemetry 89 up to 116 beats per minute. He is satting 100% on room air. Well-nourished man, no apparent distress. Eyes: No scleral icterus. Neck: Supple. No lymphadenopathy. The neck veins are still at about 10 cm of blood. Heart normal S1, S2. There is a 3/6 holosystolic murmur at the apex. Lungs are clear. Anterior abdomen is soft, positive bowel sounds. No hepatosplenomegaly. Extremities was no edema. LABORATORIES: Reviewed. Hematocrit is stable at 39%, white count, platelet count normal. Creatinine 0.5. He is hyponatremic. Sodium 127. Troponin T was mildly elevated but I have cathed him and I know he has no coronary artery disease. Troponin T most recently 0.14. TSH is 3.4. CURRENT MEDICATIONS: 1. Lisinopril 5 mg daily. 2. Toprol-XL 12.5 mg daily. 3. Lasix 40 mg IV b.i.d. 4. Digoxin 0.25 mg daily. 5. Spironolactone 25 mg daily. Dig level was 1.2 on admission. Echocardiogram shows EF of 15%-20% which is stable with severe global hypokinesis. Estimated pulmonary artery systolic pressure is 70 mmHg, assuming right atrial pressure of 15 mmHg. October 2015 his pulmonary artery systolic pressure was 47 mmHg. PLAN: Recommend continued diuresis. He is not ready to be switched to p.o. Lasix just yet. He is still volume up. When I last saw him in clinic March 25, 2016, at that time he was doing well and his weight was 63 kg. The patient's current weight is 64.7 kg. Once he gets to his dry weight, then he can safely be discharged home. He wants to have a family meeting and discuss heart transplants and advanced heart failure therapeutics. I will be visiting with him this afternoon hopefully with the support of the asl interpreter. Thank you very much for the opportunity to evaluate him.
[2016-06-10 14:58] LABS: OSMOLALITY, URINE 562 mOs/kH2O (250-1200)
[2016-06-11] VITALS (8 sets, daily range): BP systolic 96–115; BP diastolic 62–75; PULSE 66–115; RESP 18–20; O2SAT 99–100
[2016-06-11 06:21] LABS: INR 1.18 ratio
[2016-06-11] MEDS: MeTOProlol XL 25 mg ER24 Tablet PO SCH (08:05)
[2016-06-11] MEDS: Sodium Chloride LOK Flush 10 mL Syringe IVFLUSH SCH ×2 (08:05→16:48)
[2016-06-11] MEDS ORDERED: Insulin Human REGular 300 Unit/3 mL Inj IV ONE (09:05)
--- NOTE | 2016-06-11 10:41 | PCM.PNMED ---
Subjective Date of Service Jun 11, 2016 Subjective Uneventful overnight. Reports he is feeling good this morning. Denies any CP, SOB, fevers, or headaches. Reports he had some loose bowel movements this morning. Exam Vital Signs Vital Sign - Last Date Time Temp Pulse Resp B/P Pulse Ox O2 Delivery O2 Flow Rate FiO2 06/11/16 09:26 36.5 66 20 113/65 100 Room Air Intake and Output 06/10/16 06/10/16 06/11/16 Cumulative From/Thru 15:00 23:00 07:00 06/08/16 13:03 - 06/11/16 06:50 Intake Total 450 ml 1200 ml 400 ml 4788 ml Output Total 1350 ml 1200 ml 6175 ml Balance -900 ml 0 ml 400 ml -1387 ml Intake Oral 450 ml 1200 ml 400 ml 4788 ml Output Urine Total 1350 ml 1200 ml 6175 ml # Voids 3 3 # Bowel Movements 0 0 Exam General/Constitutional: Well-nourished male who appears in NAD. Cooperative Mouth: Moist oropharyngeal mucosa Chest: Atraumatic, No respiratory distress, No retractions, No chest tenderness all deformity Lungs : Clear to auscultation bilaterally. No wheezing Cardiovascular: RRR with soft systolic murmur Abdomen: Soft non-tender, non-distended, no mass Extremities: no edema bilaterally, no cyanosis, no tenderness Skin: Warm, Dry, No cyanosis, no rash, no ulcers Neurologic: Alert, Oriented, grossly intact Psychiatric: Mood/affect normal, Behavior normal, Normal thought content IVs and Medications Medications Reviewed: Medications were reviewed in detail Lab and Diagnostics Result Diagram: 06/10/16 0530 06/11/16 0530 X-Rays, CTs and MRIs X-RAY CHEST, TWO VIEWS IMPRESSION: 1. Cardiomegaly. 2. No acute process. Dictated by: Morgan Monte M.D. on 06/08/2016 at 14:16 Cardiac Echo Impressions Interpretation Summary The left ventricle is severely dilated. Left ventricular systolic function is severely reduced. The ejection fraction is estimated to be 15-20%. There is severe global hypokinesis of the left ventricle. Assessment of diastolic parameters indicates a restrictive filling pattern of the left ventricle consistent with significantly elevated filling pressures. The right ventricle is mild to moderately dilated. There is a pacemaker lead in the right ventricle. Right ventricular systolic function is moderately reduced. The right ventricular systolic pressure is estimated at 70 mmHg assuming a right atrial pressure of 15 mm Hg. The left atrium is severely dilated. The right atrium is mildly dilated. There is mild to moderate mitral regurgitation. There is no other significant valvular heart disease. The aortic root is normal size. Only real significant change is significant increase of pulmonary hypertension. 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 He is currently under treatment for a CHF exacerbation. Hospital day #3 # Decompensated acute on chronic systolic heart failure, present on admission, ongoing -Etiology of exacerbation uncertain at this time as patient is compliant with his medications and denies any excessive salt intake. 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 -Continue supplemental O2 while titrating down -Strict I & O, fluid restriction, daily weights. -ECHO results as above - concerning for increased PA pressures -Transitioned to PO lasix 40mg BID, will transition back to home dosage on discharge -Telemetry monitoring has been unremarkable. -Dr. Conte, cardiology, consulted on patient. Appreciate her time and expertise. #Hyperkalemia, acute Treated with 15mg of Kayexalate and 10units of regular insulin with 1 amp of D50 Will recheck levels this afternoon. Will consult with cardiology to consider decreasing Spironolactone dosage Hold MALCOM-I for now # Elevated troponin of uncertain significance, present on admission, stable -Likely due to demand ischemia from CHF exacerbation # Coumadin toxicity, present on admission, resolved -Patient on chronic anticoagulation due to cardiac thrombus -He was given 2.5 mg of Vitamin K PO -Coumadin to be managed by pharmacy -Had a 7.5mg dose yesterday afternoon, but still subtherapeutic today. 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 Pain Evaluation: Adequate Pain Control VTE Prophylaxis: Other (on Coumadin at home. INR 7 on admission ) VTE Mechanical Devices: Intermittant Pneumatic CD Resuscitation Status: CPR: Attempt Resuscitation Attending Statement The patient was seen and examined together with Dr. Singletary on 06/11/2016 and I agree with the history, exam and plan as outlined in the note above. Damon Singletary DO Jun 11, 2016 10:41 Franky Ramachandran MD Jun 12, 2016 10:52
[2016-06-11] MEDS ORDERED: Furosemide 10 mg/mL 4 mL Inj IVPUSH ONE (17:00)
[2016-06-11] MEDS ORDERED: Warfarin 5 MG, Warfarin 2.5 MG PO ONE ×2 (17:00)
--- NOTE | 2016-06-11 20:26 | PROG NOTE ---
[address] [address] PROGRESS NOTE PATIENT: SAIRA PISANO : 1995 MR#: [id number] ADMIT: 06/08/2016 JOB ID: [id number] CARDIOLOGY PROGRESS NOTE: DATE: 06/11/2016 CHIEF COMPLAINT: Shortness of breath. SUBJECTIVE: This morning, patient's breathing is better. He feels back to baseline. He has been transitioned to p.o. loop diuretic. This morning, patient requested to have a family meeting with a lithographic etcher to assist his father in understanding his health problems. Also present was patient's and his son as well as patient's father and the patient. We had about a 30 minute long family meeting during which all the questions were answered. I still do not know exactly what triggered this particular bout of acute decompensated heart failure. OBJECTIVE: Vital signs: Temperature 36.3, blood pressure 96/62 up to 115/75 with a heart rate fluctuating between 66 up to 115 beats per minute. He is satting 99% on room air. I's and O's: Patient urinated out 900 cc out more than in. His weight is down from 67 kg on admission to 63.3 kg at this time. Of note, this is his dry weight, 63 kg. General: A well-nourished man, no apparent distress. Eyes: No scleral icterus. Heart: Normal S1, S2. There are no murmurs actually present today, whereas yesterday, he did have a significant holosystolic murmur at the apex. Lungs are clear. Abdomen is soft with positive bowel sounds. There is no lower extremity edema. LABORATORY: His labs are reviewed. INR is 1.2. Hematocrit is 39%. White count, platelet counts are normal. His creatinine is 0.5, potassium is a little elevated this morning at 5.7. Sodium is coming up to 130. Transaminases are mildly elevated, AST 58, ALT 50, but his ALT is certainly coming down. AST has been stable. ASSESSMENT AND PLAN: 1. A 20-year-old with acute decompensated heart failure in the setting of cardiomyopathy, baseline ejection fraction 10% to 15%. 2. Hyperkalemia. Hold lisinopril, currently at 5 mg twice a day. Of note, home dose actually is 10 mg twice a day in the past. He has done well with it. Hold the spironolactone. At home, he was doing 25 mg daily. Continue Toprol-XL. I agree with stopping his IV Lasix. He was getting 40 mg IV twice a day, and trying him on loop diuretic. I recommend Demadex 40 mg daily. Continue digoxin. He will need to follow closely with advanced heart failure loan servicing specialist, Dr. Deya Howell, to discuss whether he now meets criteria to be listed for LVAD. Thank you very much for the opportunity to evaluate him.
[2016-06-12 00:09] VITALS: BP 116/67; PULSE 98; RESP 18; O2SAT 100
[2016-06-12] MEDS: Sodium Chloride LOK Flush 10 mL Syringe IVFLUSH SCH ×2 (01:13→07:41)
[2016-06-12 04:52] VITALS: BP 96/59; PULSE 98; RESP 18; O2SAT 99
[2016-06-12 04:54] VITALS: BP 109/75; PULSE 105
[2016-06-12 05:05] VITALS: BP 110/75; PULSE 103
[2016-06-12 06:29] VITALS: PULSE 103
[2016-06-12 06:55] LABS: BASOPHILS % (AUTO) 0.4 % (0-3); EOSINOPHILS % (AUTO) 3.9 % (0-5); MONOCYTES % (AUTO) 8.4 % (4-12); Mean Corpuscular Volume 70.3 fL (81-100); NEUTROPHILS % (AUTO) 58.4 % (40-74); Platelet Count 210 bil/L (150-400)
[2016-06-12 07:30] LABS: INR 1.61 ratio
[2016-06-12 07:42] VITALS: PULSE 94
[2016-06-12] MEDS: MeTOProlol XL 25 mg ER24 Tablet PO SCH (07:42)
[2016-06-12 07:44] LABS: Magnesium 1.8 mg/dL (1.6-2.6)
[2016-06-12] MEDS ORDERED: SPIR25TA3 PO (09:07)
[2016-06-12] MEDS ORDERED: LISI-571 PO (09:07)
[2016-06-12] MEDS ORDERED: TORS20TA PO (09:07)
--- NOTE | 2016-06-12 09:09 | PCM.DIMED ---
Discharge Instructions Date of Service Jun 12, 2016 Dates of Hospitalization Jun 08, 2016 at 17:29 Discharge Diagnosis Discharge Diagnosis 1. Congestive Heart Failure with Severe Systolic Dysfunction, Acute Exacerbation, Resolving 2. Hyperkalemia, Resolved 3. Hx of Methamphetamine Abuse Diet Heart Healthy Activity No restrictions Call your provider Fever or Chills, Shortness of breath, Bleeding, Chest pain, Vomitting, Excessive diarrhea, Weakness (unilateral) Patient Instructions Provider: Suzy Leon MD Follow-up in: 1 week (Pt to call for an appointment.) Franky Ramachandran MD Jun 12, 2016 09:09
--- NOTE | 2016-06-12 10:56 | PCM.DC.MED ---
Discharge Summary Date of Service Jun 12, 2016 Dates of Hospitalization Date of Hospital Admission Jun 08, 2016 at 17:29 Date of Discharge: Jun 12, 2016 Providers: Admitting Physician: Jefferson Blackburn MD Primary Care Physician: Misty Herr MD Attending Physician: Jefferson Blackburn MD Diagnosis at Time of Discharge Diagnosis at Time of Discharge 1. Congestive Heart Failure with Severe Systolic Dysfunction, Acute Exacerbation, Resolving 2. Hyperkalemia, Resolved 3. Hx of Methamphetamine Abuse Consultations 1. Cardiology Procedures XRay, CTs & MRIs X-RAY CHEST, TWO VIEWS IMPRESSION: 1. Cardiomegaly. 2. No acute process. Dictated by: Morgan Monte M.D. on 06/08/2016 at 14:16 Cardiac Echo Impression Interpretation Summary The left ventricle is severely dilated. Left ventricular systolic function is severely reduced. The ejection fraction is estimated to be 15-20%. There is severe global hypokinesis of the left ventricle. Assessment of diastolic parameters indicates a restrictive filling pattern of the left ventricle consistent with significantly elevated filling pressures. The right ventricle is mild to moderately dilated. There is a pacemaker lead in the right ventricle. Right ventricular systolic function is moderately reduced. The right ventricular systolic pressure is estimated at 70 mmHg assuming a right atrial pressure of 15 mm Hg. The left atrium is severely dilated. The right atrium is mildly dilated. There is mild to moderate mitral regurgitation. There is no other significant valvular heart disease. The aortic root is normal size. Only real significant change is significant increase of pulmonary hypertension. 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 Patient presented to the hospital c/o worsening dyspnea on mild exertion for a week or so. He c/o associated increased pedal edema, lightheadedness, dizziness , generalized weakness and cough. He stated he has been taking his medication and is compliant with his diet Pt denies CP, fever, chills, abdominal pain, vomiting, diarrhea. He denied any recent drug use. He stated the last time he used drug was back in 2014. 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 He is currently under treatment for a CHF exacerbation. Hospital day #3 1. Congestive Heart Failure, Severe Systolic Dysfunction, Acute Exacerbation -Etiology of exacerbation uncertain at this time as patient is compliant with his medications and denies any excessive salt intake. 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 -Pt was diuresed a total of approx 2 liters -ECHO results as above, concerning for increasing PA pressures -Cardiology was consulted and has arranged follow-up to discuss heart transplant and LVAD in the meantime -Furosemide discontinued per Cardiology -Continue Torsemide -Spironolactone dose decreased secondary to hyperkalemia -MALCOM-I dose decreased related to hyperkalemia -On day of discharge pt is in good/stable condition #Hyperkalemia, Resolved Treated with 15mg of Kayexalate and 10units of regular insulin with 1 amp of D50 K on discharge was within normal limits See above # Elevated troponin of uncertain significance, present on admission, stable -Likely due to demand ischemia from CHF exacerbation # Coumadin toxicity, present on admission, resolved -Patient on chronic anticoagulation due to cardiac thrombus -He was given 2.5 mg of Vitamin K PO -Coumadin to be managed by pharmacy -Had a 7.5mg dose yesterday afternoon, but still subtherapeutic today. # Hypervolemic Hyponatremia -Likely Secondary to CHF -Mildly improving # Systolic failure with ejection fraction of 10-15% (secondary to methamphetamine abuse) # Status post AICD -AICD interrogated and no acute issues identified Exam Vital Signs (Last) Date Time Temp Pulse Resp B/P Pulse Ox O2 Delivery O2 Flow Rate FiO2 06/12/16 07:42 94 06/12/16 05:05 110/75 06/12/16 04:52 36.8 18 99 Room Air Exam GENERAL: NAD, Pt laying in bed comfortably HEENT: AT/NC, PERRLA, EOMI, Mucus Membranes are moist NECK: Supple; No LAD or Thyromegaly present CARDIAC: RRR; No M/R/G PULM: CTAB; No wheezes or rhonchi bilaterally ABD: Soft, Nontender, Nondistended, Positive bowel sounds in all quadrants, No Hepatosplenomegaly appreciated EXT: No C/C/E; No calf tenderness bilaterally SKIN: Warm, Dry, [place], and Intact NEURO: Alert and oriented x3; Following all commands PSYCH: Normal mood and affect Test 06/08/16 12:50 06/08/16 17:06 06/09/16 05:12 06/09/16 15:00 Hemoglobin A1c 6.6% (4.8-5.6) Prealbumin 15mg/dL (20-40) Thyroid Stimulating Hormone (TSH) 3.430uIU/mL (0.450-4.500) Urine Color Yellow (YELLOW) Urine Appearance Hazy (CLEAR,HAZY) Urine pH 5.5 (5.0-8.0) Urine Specific [place] 1.020 (1.003-1.035) Urine Protein Tracemg/dL (NEG,TRACE) Urine Glucose (UA) Negativemg/dL (NEGATIVE) Urine Ketones Negativemg/dL (NEGATIVE) Urine Occult Blood Negative (NEGATIVE) Urine Nitrite Negative (NEGATIVE) Urine Bilirubin Negative (NEGATIVE) Urine Urobilinogen Normalmg/dL (NORMAL) Urine Leukocyte Esterase Negative (NEGATIVE) Urine RBC 0-2/hpf (0-2) Urine WBC 0-5/hpf (0-5) Urine Epithelial Cells Few/hpf (NONE-MOD) Urine Crystals None seen (NONE SEEN) Urine Bacteria Few/hpf (NONE-FEW) Urine Hyaline Casts None/lpf (NONE) Urine Granular Casts None seen (NONE SEEN) Urine Waxy Casts None seen (NONE SEEN) Urine Red Blood Cell Casts None seen (NONE SEEN) Urine White Blood Cell Casts None seen (NONE SEEN) Urine Mucus None seen (None Seen) Urine Trichomonas None seen (NONE SEEN) Urine Yeast None (NONE SEEN) Urinalysis Comment None Urine Culture Reflexed Not indicated Urine Opiates Screen Negative Urine Methadone Screen Negative Urine Barbiturates Screen Negative Urine Amphetamines Screen Negative Urine Benzodiazepines Screen Negative Urine Cocaine Metabolite Screen Negative Urine Cannabinoids Screen Negative Pro-B-Type Natriuretic Peptide 6876pg/mL (0-86) Triglycerides Level 74mg/dL (0-89) Cholesterol Level 107mg/dL (100-169) LDL Cholesterol, Calculated 68.200mg/dL (0-109) VLDL Cholesterol 14.800mg/dL HDL Cholesterol 24mg/dL (>39) Cholesterol/HDL Ratio 4.46 (0.0-4.4) Troponin T 0.123ug/L (0.0-0.011) Test 06/10/16 11:19 06/11/16 14:45 06/11/16 16:45 06/11/16 17:03 Urine Osmolality 562mOs/kH2O (250-1200) Urine Random Sodium 129mEq/L Direct Bilirubin 1.1mg/dL (0.0-0.3) Urine Random Creatinine 50mg/dL (24-392) Digoxin Level 1.0nG/mL (0.9-2.0) Test 06/12/16 05:50 White Blood Count 9.5th/mm3 (3.8-10.1) Red Blood Count 5.95mil/mm3 (4.40-5.80) Hemoglobin 13.1g/dL (13.8-17.2) Hematocrit 41.8% (41.0-50.0) Mean Corpuscular Volume 70.3fL (81-100) Mean Corpuscular Hemoglobin 22.0pg (27.0-35.0) Mean Corpuscular Hemoglobin Concent 31.3% (32.0-37.0) Red Cell Distribution Width 19.8% (12.3-15.4) Platelet Count 210bil/L (150-400) Neutrophils (%) (Auto) 58.4% (40-74) Lymphocytes (%) (Auto) 27.8% (14-46) Monocytes (%) (Auto) 8.4% (4-12) Eosinophils (%) (Auto) 3.9% (0-5) Basophils (%) (Auto) 0.4% (0-3) Prothrombin Time 17.4sec (8.1-12.5) Prothromb Time International Ratio 1.61ratio Sodium Level 131mEq/L (134-144) Potassium Level 4.5mEq/L (3.5-5.2) Chloride Level 93mEq/L (97-108) Carbon Dioxide Level 23mmol/L (18-29) Blood Urea Nitrogen 20mg/dL (6-20) Creatinine 0.70mg/dL (0.76-1.27) Estimat Glomerular Filtration Rate 154mL/min (>59) Glucose Level 110mg/dL (60-99) Calcium Level 8.7mg/dL (8.5-10.1) Magnesium Level 1.8mg/dL (1.6-2.6) Total Bilirubin 2.5mg/dL (0.0-1.2) Aspartate Amino Transf (AST/SGOT) 34U/L (0-50) Alanine Aminotransferase (ALT/SGPT) 43U/L (0-44) Alkaline Phosphatase 169U/L (25-150) Total Protein 6.5g/dL (6.4-8.4) Albumin 3.4g/dL (3.4-5.0) Discharge Medications Discharge Medications Digoxin (Digoxin) 250 Mcg Tablet 250 MCG PO DAILY (Reported) Lisinopril (Lisinopril) 5 Mg Tablet 5 MG PO DAILY Prescribed by: DIPIKA ROLLINS MD Metoprolol Succinate ER (Metoprolol Succinate ER) 25 Mg Tab.er.24h 12.5 MG PO BID (Reported) Spironolactone (Spironolactone) 25 Mg Tablet 12.5 MG PO DAILY Prescribed by: DIPIKA ROLLINS MD Torsemide (Demadex) 20 Mg Tablet 40 MG PO DAILY Prescribed by: DIPIKA ROLLINS MD Warfarin Sodium (Warfarin Sodium) 5 Mg Tablet 7.5 MG PO Mondays (Reported) Warfarin Sodium (Warfarin Sodium) 5 Mg Tablet 5 MG PO 6X weekly (Reported) every day but monday Followup Plan Discharge Diet: Heart Healthy Discharge Activity: No restrictions Provider: Suzy Leon MD Follow-up in: 1 week (Pt to call for an appointment.) Time spent 35 minutes Dipika Rollins MD Jun 12, 2016 10:56
== END 2016-06-12 10:30 | disposition home or self-care (01) | DRG 292 ==
LOC: SED 12:40 → MPC 17:29
PROVIDERS: ADMIT Internal Medicine; ATTEND Internal Medicine
PROC: 4B02XTZ Measurement of Cardiac Defibrillator, External Approach (ICD-10-PCS; principal; 2016-06-10)
DX: I50.23 Acute on chronic systolic (congestive) heart failure (principal); E87.1 Hypo-osmolality and hyponatremia; I42.8 Other cardiomyopathies; I24.8 Other forms of acute ischemic heart disease; Z95.810 Presence of automatic (implantable) cardiac defibrillator; Z79.01 Long term (current) use of anticoagulants; T45.511A Poisoning by anticoagulants, accidental (unintentional), initial encounter; E87.5 Hyperkalemia